=== PATIENT | male | born 1975 | race Caucasian/White ===

== ENCOUNTER 2020-11-24 10:00 | Inpatient (IN) | payer OTHER ==
[~2020-11-24] VITALS: Ht 167.6 cm; Wt 106.6 kg
[2020-11-24] MEDS ORDERED: BUPROPION HCL150 MG PO (10:39)
[2020-11-24] MEDS ORDERED: ZOLOFT50 MG PO (10:39)
[2020-11-24] MEDS ORDERED: LEVO-T75 MCG PO (10:40)
[2020-11-24] MEDS ORDERED: RISPERDAL3 MG PO (10:40)
[2020-11-24] MEDS ORDERED: TRAZODONE HCL150 MG PO (10:40)
[2020-11-24] MEDS ORDERED: IRBESARTAN-HCT1 EAC1 PO (10:40)
[2020-11-24] MEDS ORDERED: DRAMAMINE LESS25 MG PO (10:41)
[2020-11-24] MEDS ORDERED: PANTOPRAZOLE SO40 MG PO (10:41)
[2020-11-24] MEDS ORDERED: FAMOTIDINE40 MG PO (10:41)
[2020-11-29] MEDS ORDERED: SEMGLEE100 UNIT/1 (08:50)
[2020-11-29] MEDS ORDERED: OMEPRAZOLE20 MG (08:50)
[2020-11-29] MEDS ORDERED: PHENERGAN25 MG (08:51)
== END 2020-11-30 10:36 | disposition home or self-care (01) | DRG 627 ==
LOC: SURH 11-26 10:00 → O/R 11-29 06:00 → SURH 11-29 14:22
PROVIDERS: ADMIT Surgery; ATTEND Surgery
PROC: 0GTG0ZZ Resection of Left Thyroid Gland Lobe, Open Approach (ICD-10-PCS; principal; 2020-11-29 11:00)
DX: C73 Malignant neoplasm of thyroid gland (principal)

== ENCOUNTER 2021-04-18 05:34 | Inpatient (IN) | payer OTHER ==
[~2021-04-18 05:34] MED LIST: BUPROPION HCL150 MG PO; DRAMAMINE LESS25 MG PO; FAMOTIDINE40 MG PO; IRBESARTAN-HCT1 EAC1 PO; LEVO-T75 MCG PO; OMEPRAZOLE20 MG; PANTOPRAZOLE SO40 MG PO; PHENERGAN25 MG; RISPERDAL3 MG PO; SEMGLEE100 UNIT/1; SYNTHROID150 MCG PO; TRAZODONE HCL150 MG PO; ZOLOFT50 MG PO
== END 2021-04-19 18:31 | disposition home or self-care (01) | DRG 627 ==
LOC: CIR.AMB 05:34 → SURH 12:11 → O/R 12:11 → SURH 12:49
PROVIDERS: ADMIT Otolaryngology; ATTEND Otolaryngology
PROC: 0GTH0ZZ Resection of Right Thyroid Gland Lobe, Open Approach (ICD-10-PCS; principal; 2021-04-18 07:00)
DX: C73 Malignant neoplasm of thyroid gland (principal); Z20.822 Contact with and (suspected) exposure to COVID-19